=== PATIENT | female | born 1955 | race Two or more races ===

== ENCOUNTER 2019-01-28 15:00 | Inpatient (IN) | payer MEDICARE, OTHER ==
[~2019-01-28] VITALS: Ht 152.4 cm; Wt 73.7 kg
[~2019-01-28 15:00] MED LIST: IV NORMAL SALINE 500ML BAG 500 ML IV ONE; fentaNYL PF VIAL 100 MCG/2 ML VIAL IV ONE
[2019-01-28] MEDS ORDERED: AZITHRMYCN 500MG IVPB FOR OMNI 250 ML IV ONE (17:30)
[2019-01-28] MEDS ORDERED: cefTRIAXone IV Push 1 GM VIAL. IVP SCH (17:30)
[2019-01-28] MEDS ORDERED: hydrALAZINE 20 MG/ML VIAL. IVP ONE (17:45)
[2019-01-28] MEDS ORDERED: ALBUTEROL SULFATE 2.5 MG/3 ML NEBU. NEB ONE (17:45)
[2019-01-28] MEDS ORDERED: IOHEXOL 350 MG/ML 100 ML VIAL. IV ONE (20:00)
[2019-01-28 20:30] VITALS: BP 130/49
[2019-01-28 21:36] LABS: CALCIUM 9.3 mg/dL (8.5-10.1); CREATININE 0.9 mg/dL (0.6-1.0); GFR 63.2; POTASSIUM 3.3 mmol/L (3.5-5.1)
[2019-01-28 22:46] VITALS: BP 146/65
[2019-01-28 23:11] LABS: BASO % 0 % (0-3); EOS # 0.4 x10^3/uL (0.0-0.7); EOS % 3 % (0-3); HEMATOCRIT 36.3 % (36.0-47.0); LYMPH # 0.9 x10^3/uL (1.0-4.8); LYMPH % 6 % (24-48); MEAN CORPUSCULAR HEMOGLOBIN 30 pg (25-35); MEAN CORPUSCULAR HGB CONC 33 g/dL (31-37); MEAN CORPUSCULAR VOLUME 89 fL (79-100); MONO # 0.6 x10^3/uL (0.0-1.1); MONO % 4 % (0-9); NEUT # 14.3 x10^3uL (1.8-7.7); NEUT % 88 % (31-73); PLATELET COUNT 222 x10^3/uL (140-400); PROTHROMBIN TIME PATIENT 14.9 SEC (11.7-14.0); RED BLOOD COUNT 4.08 x10^6/uL (3.50-5.40); WHITE BLOOD COUNT 16.2 x10^3/uL (4.0-11.0)
[2019-01-28] MEDS ORDERED: NITROGLYCERIN SUBLINGUAL 0.4 MG BOTTLE OF 25. SL PRN (23:15)
[2019-01-28] MEDS ORDERED: CEFUROXIME AXETIL PO SCH (23:15)
[2019-01-28] MEDS ORDERED: ACETAMINOPHEN 325 MG TABLET. PO PRN (23:15)
[2019-01-28] MEDS ORDERED: CONTRAST GIVEN. MC PRN (23:15)
[2019-01-28] MEDS ORDERED: NON FORMULARY ITEM (Melatonin 2 TAB) PO SCH (23:15)
[2019-01-28] MEDS ORDERED: ALBUTEROL SULFATE PO PRN (23:15)
[2019-01-28 23:18] LABS: % BANDS 6 % (0-9); % EOS 2 % (0-5); % LYMPHS 6 % (24-48); % MONOS 3 % (0-10); % SEGS 83 % (35-66)
[2019-01-28 23:20] LABS: PLT ESTIMATE ADEQUATE (ADEQUATE); TOXIC GRANULATION MOD
[2019-01-28] MEDS ORDERED: ASPI81TA50 PO (23:42)
[2019-01-28] MEDS ORDERED: FLUT12AE IH (23:42)
[2019-01-28] MEDS ORDERED: CLOP75TA PO (23:42)
[2019-01-28] MEDS ORDERED: OXYC5SOL PO (23:42)
[2019-01-28] MEDS ORDERED: NITR0.4T SL (23:42)
[2019-01-28] MEDS ORDERED: MELA3TAB2 PO (23:42)
[2019-01-28] MEDS ORDERED: RANI150T2 PO (23:42)
[2019-01-28] MEDS ORDERED: ASCO500T2 PO (23:42)
[2019-01-28] MEDS ORDERED: MAGN2400 PO (23:42)
[2019-01-28] MEDS ORDERED: ACET325T9 PO (23:42)
[2019-01-28] MEDS ORDERED: FURO40TA4 PO (23:42)
[2019-01-28] MEDS ORDERED: BUSP15TA PO (23:42)
[2019-01-28] MEDS ORDERED: FLUT16SP NS (23:42)
[2019-01-28] MEDS ORDERED: CARV3.1210 PO (23:42)
[2019-01-28] MEDS ORDERED: ARIP10TA9 PO (23:42)
[2019-01-28] MEDS ORDERED: DULO60CA6 PO (23:42)
[2019-01-28] MEDS ORDERED: PRAM0.255 PO (23:42)
[2019-01-28] MEDS ORDERED: GABA600T7 PO (23:42)
[2019-01-28] MEDS ORDERED: FERR220S4 PO (23:42)
[2019-01-28] MEDS ORDERED: ALBU2SYR2 PO (23:42)
[2019-01-28] MEDS ORDERED: LOSA25TA12 PO (23:42)
[2019-01-28] MEDS ORDERED: CEFU500T46 PO (23:42)
[2019-01-28] MEDS ORDERED: ATOR40TA59 PO (23:42)
[2019-01-28] MEDS ORDERED: ONDA8TAB14 PO (23:42)
[2019-01-28] MEDS ORDERED: SODI30SP NS (23:42)
[2019-01-28] MEDS ORDERED: MULT1TAB77 PO (23:42)
[2019-01-28] MEDS ORDERED: WHEY227P PO (23:42)
[2019-01-29] MEDS ORDERED: ONDANSETRON ODT 4 MG TAB.RAPDIS. PO PRN (00:15)
[2019-01-29] MEDS ORDERED: MAGNESIUM HYDROXIDE 2,400 MG/30 ML ORAL.SUSP. PO PRN (00:15)
[2019-01-29] MEDS ORDERED: ALBUTEROL SULFATE 2.5 MG/3 ML NEBU. NEB PRN (00:30)
[2019-01-29] MEDS: oxyCODONE IR 5 MG TABLET PO PRN ×4 (00:45→18:32)
[2019-01-29] MEDS: busPIRone 5 MG TABLET. PO SCH ×3 (00:46→21:07)
[2019-01-29] MEDS: PRAMIPEXOLE 0.25 MG TABLET. PO SCH ×2 (00:46→21:07)
[2019-01-29] MEDS: ATORVASTATIN CALCIUM 40 MG TABLET. PO SCH ×2 (00:46→21:07)
[2019-01-29] MEDS: ASCORBIC ACID 500 MG TABLET PO SCH ×3 (00:46→21:07)
[2019-01-29] MEDS: CARVEDILOL 3.125 MG TABLET. PO SCH ×3 (00:47→18:27)
[2019-01-29] MEDS: diphenhydrAMINE HCL 25 MG CAPSULE PO PRN ×2 (00:47→21:07)
[2019-01-29 03:00] VITALS: BP 152/61
[2019-01-29 05:46] LABS: BASO % 0 % (0-3); EOS # 0.1 x10^3/uL (0.0-0.7); EOS % 1 % (0-3); HEMATOCRIT 35.2 % (36.0-47.0); LYMPH # 1.2 x10^3/uL (1.0-4.8); LYMPH % 11 % (24-48); MEAN CORPUSCULAR HEMOGLOBIN 30 pg (25-35); MEAN CORPUSCULAR HGB CONC 34 g/dL (31-37); MEAN CORPUSCULAR VOLUME 88 fL (79-100); MONO # 0.5 x10^3/uL (0.0-1.1); MONO % 5 % (0-9); NEUT # 8.7 x10^3uL (1.8-7.7); NEUT % 82 % (31-73); PLATELET COUNT 229 x10^3/uL (140-400); RED CELL DISTRIBUTION WIDTH 15.9 % (11.5-14.5); WHITE BLOOD COUNT 10.6 x10^3/uL (4.0-11.0)
[2019-01-29 05:49] LABS: ALBUMIN 3.1 g/dL (3.4-5.0); ALBUMIN/GLOBULIN RATIO 0.8 (1.0-1.7); CREATININE 0.8 mg/dL (0.6-1.0); GFR 72.4; TOTAL BILIRUBIN 0.8 mg/dL (0.2-1.0); TOTAL PROTEIN 7.1 g/dL (6.4-8.2)
[2019-01-29 06:55] VITALS: BP 135/48
[2019-01-29] MEDS: BUDESONIDE 0.5 MG/2 ML NEBU. NEB SCH ×2 (07:28→20:00)
--- NOTE | 2019-01-29 07:45 | EKG ---
[facility] [address] [place] [address] Test Date: 2019-01-28 Test Time: 14:43:52 Pat Name: KATHERINE MCGILL Department: Room: [facility] Gender: F Freight Breaker: : 1955 Requested By: DASH LAZO Order Number: [id number] Reading MD: Malcolm Luna Measurements Intervals [place] Rate: 64 P: 33 OK: 152 QRS: 10 QRSD: 98 T: 0 QT: 416 QTc: 429 Interpretive Statements SINUS RHYTHM LEFT ATRIAL ABNORMALITY NONSPECIFIC ST-T WAVE CHANGES. Electronically Signed On 01-31-2019 9:43:50 CDT by Malcolm Luna
[2019-01-29] MEDS ORDERED: WHEY PROTEIN ISOLATE PO SCH (08:00)
[2019-01-29] MEDS: ARIPiprazole 5 MG TABLET PO SCH (08:42)
[2019-01-29] MEDS: ASPIRIN ENTERIC COATED 81 MG TABLET.DR. PO SCH (08:43)
[2019-01-29] MEDS: FAMOTIDINE 20 MG TABLET. PO SCH (08:43)
[2019-01-29] MEDS: FERROUS SULFATE 325 MG TABLET. PO SCH (08:43)
[2019-01-29] MEDS: CLOPIDOGREL BISULFATE 75 MG TABLET PO SCH (08:43)
[2019-01-29] MEDS: MULTIVITAMIN with MINERAL TABLET. PO SCH (08:43)
--- NOTE | 2019-01-29 08:43 | RAD ---
Chest CTA History: Cough, hemoptysis Technique: After bolus of intravenous contrast, CT imaging was performed of the chest. Multiplanar reconstruction images to include MIP reconstruction images are submitted. Exposure: One or more of the following individualized dose reduction techniques were utilized for this examination: 1. Automated exposure control 2. Adjustment of the mA and/or kV according to patient size 3. Use of iterative reconstruction technique. Comparison: None Findings: [ ] No pulmonary embolism is identified. There is fairly prominent coronary calcification. There is no dissection flap of the thoracic aorta. There is aortic annular calcification. There is no pericardial pleural fluid or pneumothorax. There is fairly prominent right lower lobe infiltrate, also more localized infiltrate posteriorly of the right upper lobe, minimal left lower lobe infiltrate. There is a borderline enlarged pretracheal node about 1 cm short axis dimension. There are some enlarged right hilar nodes, largest about 1.2 cm short axis dimension It is difficult to exclude a degree of mild esophageal wall thickening. There is right shoulder arthroplasty with associated artifact. There is osteoarthritic change of the left shoulder. There may be hepatic steatosis. There are postsurgical changes of stomach. There is multilevel thoracic degenerative disc disease and spondylosis. Impression: 1. There is no evidence of pulmonary embolic disease. 2. There is fairly prominent right lower lobe infiltrate, also more localized infiltrate posteriorly of the right upper lobe and minimally of the left lower lobe. Follow-up after treatment is advised such as within 2 months. There is right hilar lymphadenopathy, borderline enlarged mediastinal nodes. 3. There is prominent coronary calcification. Electronically signed by: Shaun Morley MD (01/29/2019 8:40 AM) [id number]
[2019-01-29] MEDS: LOSARTAN POTASSIUM 25 MG TABLET. PO SCH (08:45)
[2019-01-29] MEDS: FLUTICASONE 50MCG/NASAL SPRAY 16GM BOTTLE. NS SCH (08:46)
[2019-01-29] MEDS: DULoxetine HCL 30 MG CAPSULE.DR PO SCH (08:51)
[2019-01-29] MEDS: FUROSEMIDE 40 MG TABLET. PO SCH (08:51)
[2019-01-29] MEDS ORDERED: NON FORMULARY ITEM (Fluticasone Propionate (Flovent 110MCG Hfa) 1 PUFF) IH SCH (09:00)
[2019-01-29 10:36] VITALS: BP 146/59
[2019-01-29] MEDS ORDERED: PIP/TAZO PER PHARMACY MC PRN (13:00)
[2019-01-29] MEDS ORDERED: POTASSIUM CHLORIDE 20 MEQ TABLET.ER. PO ONE (13:15)
[2019-01-29] MEDS ORDERED: VANCOMYCIN 1.75 GM in IV NORMAL SALINE 500ML BAG 500 ML IV ONE (13:30)
[2019-01-29] MEDS ORDERED: POTASSIUM CHLORIDE 20 MEQ/15 ML ORAL LIQUID. PO ONE (13:30)
--- NOTE | 2019-01-29 13:30 | HP ---
ADMIT DATE: 01/28/2019 HISTORY OF PRESENT ILLNESS: The patient is a 63-year-old female patient, a resident at [facility] in [place], who has been complaining of recurrent bouts of cough with hemoptysis. She was sent to [facility], was diagnosed there with UTI, and was discharged back to [facility] with oral antibiotic without investigating her symptoms further. However, she continued to have recurrent bouts of hemoptysis and therefore a decision was made to transfer her to [facility] Emergency Room where she was evaluated, she was found to have leukocytosis and a CT angio of the chest showed that the patient has no pulmonary embolic disease; however, there is fairly prominent right lower lobe infiltrate, more localized infiltrates seen in the right upper lobe and minimally on the left lower lobe. Follow up after treatment is advised such as within 2 months. There is right hilar lymphadenopathy, borderline enlarged mediastinal nodes. There is also prominent coronary calcification. She was admitted and was started on Rocephin and Zithromax. However, she came from a [facility] and I did change her to Zosyn and vancomycin. 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 She has chronic low back pain, muscle weakness. 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 She has also type 2 diabetes mellitus without complication and severe protein-calorie mentation and episodes of ventricular tachycardia. PAST SURGICAL HISTORY: Significant for esophagogastroduodenoscopy and gastric bypass surgery for morbid obesity. ALLERGIES: SHE IS ALLERGIC TO CODEINE, ZETIA, FENOFIBRATE, MORPHINE, PIOGLITAZONE, SIMVASTATIN, AND SULFADIAZINE. MEDICATIONS: She is currently on following medications: She was on cefuroxime 500 mg twice a day, albuterol sulfate 4 times a day, ferrous sulfate 220 mg per 5 mL solution daily, Plavix 75 mg daily, atorvastatin calcium 40 mg daily, nitroglycerin 0.4 mg sublingually as needed every 5 minutes. She is on carvedilol 3.125 mg twice a day with meals, losartan potassium 25 mg daily, aspirin 81 mg once a day. She is on oxycodone 5 mg per 5 mL, she takes 5 mg every 4 hours as needed, Tylenol 650 mg every 4 hours, gabapentin 1200 mg daily with supper. She is on aripiprazole for Abilify 10 mg daily, buspirone 15 twice a day. She is on Mirapex 0.25 mg at bedtime, furosemide 40 mg daily, Flovent 110 mcg 1 puff twice a day, Flonase 2 sprays to each nostril once a day, sodium chloride for saline nasal spray 1-2 sprays 4 times a day, magnesium hydroxide for milk of magnesia 30 mL p.o. daily p.r.n. for constipation, ondansetron 4 mg every 6 hours, ranitidine 150 mg p.o. daily, ascorbic acid 500 mg twice a day, multivitamin, folic acid 1 tablet once a day, melatonin 6 mg at bedtime, Beneprotein 227 grams p.o. t.i.d. with meals. FAMILY HISTORY: Noncontributory. SOCIAL HISTORY: She is a resident at [facility]. She does not smoke, drink alcohol or use any recreational drugs. REVIEW OF SYSTEMS: As per history of present illness. PHYSICAL EXAMINATION: GENERAL: On arrival to the Emergency Room, the patient looked pale, but no jaundice, cyanosis, or thyromegaly. No jugular venous distention. No lower limb edema. VITAL SIGNS: Her heart rate was 78, blood pressure was 146/65, temperature was 99, respiratory rate was 19 and oxygen saturation was 100% on room air. HEAD, EYES, EARS, NOSE AND THROAT: Showed normocephalic, atraumatic. NECK: Supple. HEART: Showed normal first and second heart sounds. No gallop, rub or murmur. CHEST: Shows central trachea, equal bilateral expansion, air entry, vesicular breath sounds. No crepitation or rhonchi. ABDOMEN: Scaphoid, soft, nontender. NEUROLOGIC: She was awake, alert, responding appropriately. All cranial nerves intact. She moves extremities without difficulty. She ambulates with a walker. LABORATORY DATA: On arrival to the Emergency Room showed a white cell count of 16,200, hemoglobin 12, hematocrit 36.3, MCV 89 and platelet count 222,000 with normal manual differential. Her serum sodium was 139, potassium 3.3, chloride 101, bicarbonate 31, anion gap of 7, BUN 15, creatinine 0.9, estimated GFR was 63 mL per minute. Her glucose was 111, calcium was 9.3. Her lactic acid was only 1.4. Her prothrombin time was 14.9, INR 1.2, aPTT was 36. Her chest CT angiography showed that there is no pulmonary emboli identified. There is fairly prominent coronary calcification. There is no dissection flap of the thoracic aorta. There is aortic annular calcification. There is no pericardial, pleural fluid, or pneumothorax. There is fairly prominent right lower lobe infiltrate, also more localized infiltrates posteriorly in the right upper lobe and minimal left lower lobe infiltrate. There is a borderline enlarged pretracheal node about 1 cm in short axis dimension. There are some enlarged right hilar nodes, largest about 1.2 cm short axis, difficult to exclude degree of mild esophageal wall thickening. There is right shoulder arthroplasty with associated artifact. There are osteoarthritic changes of the left shoulder. There may be hepatic steatosis. There are post-surgical changes of the stomach. There is multilevel thoracic degenerative disk disease and spondylosis. ASSESSMENT AND PLAN: The patient was admitted with healthcare-associated pneumonia. She was given IV Rocephin and Zithromax. However, she came [facility] a [facility] and she probably needs to be on vancomycin and Zosyn. Given the fact that she has multiple episodes of hemoptysis and at least 2-3 episodes of pneumonia, presented initially with hemoptysis, I will consult the manager of administration to assist with her management. The recurrence of pneumonia is obviously likely due to her tendency to aspirate; however, underlying neoplasm given the hemoptysis needs to be excluded. She is on Plavix and aspirin. DASH LAZO MD DR: RADHA/agustina JOB#: [id number] / [id number]
[2019-01-29] MEDS: POTASSIUM CHLORIDE 20 MEQ/15 ML ORAL LIQUID. PO SCH ×2 (14:00→20:06)
[2019-01-29] MEDS ORDERED: POTASSIUM CHLORIDE 20 MEQ TABLET.ER. PO SCH (14:00)
[2019-01-29] MEDS: PIPERACILLIN/TAZOBACTAM 3.375 GM in IV NORMAL SALINE 50ML 50 ML IV SCH ×2 (14:35→21:06)
[2019-01-29 15:16] VITALS: BP 140/67
--- NOTE | 2019-01-29 15:29 | NUR ---
Patient did not tolerate KCL oral solution, called Dr. Heredia at 1520, received order to start KCL correction via IV.
[2019-01-29] MEDS: POTASSIUM CHLORIDE 10MEQ 100 ML IV SCH ×3 (16:06→21:54)
[2019-01-29] MEDS: VANCOMYCIN PER PHARMACY MC PRN (16:50)
--- NOTE | 2019-01-29 16:54 | NUR ---
Pharmacy Vancomycin Dosing Note S:Consulted to monitor and dose vancomycin started 01/29/19. O:KATHERINE MCGILL is a 63 year old F with Pneumonia . Height: 5 feet, 0 inches Weight: 75.547283 kg [place] Body Weight: 45.50 Adjusted Body Weight: 57.30 Dosing Weight: Actual Other Antibiotics: ZOSYM 3.375GM q6hrs LABS: Last BUN: 11 Last Creatinine: 0.8 Creatinine Clearance: 65.1 mL/min Last WBC: 10.6 Last Procalcitonin: Tmax (past 24 hours): 99.0 Microbiology: I/O: 300/ Drug Levels: Last level: on at Last dose given 01/29/19 at 1549 Vancomycin Dosing: Loading Dose: 1750 mg x1 Dosing Weight: Actual Target Trough: 15-20 A: Based on weight and est. CrCl: P: 1. Start Vancomycin 1750mg, followed by Vancomycin 1250 mg IV q12h. 2. Follow up Trough level on 01/31/19 at 0330. 3. Pharmacy will continue to monitor, follow and adjust therapy as needed. Jason Pool [facility], 01/29/19 [id number]
--- NOTE | 2019-01-29 17:47 | PDOC ---
PULMONARY PROGRESS NOTES Vitals Vital Signs Date Time Temp Pulse Resp B/P (MAP) Pulse Ox O2 Delivery O2 Flow Rate FiO2 01/29/19 15:16 97.9 71 19 140/67 (91) 97 Room Air 97.9 Labs Laboratory Tests Test 01/28/19 14:45 01/28/19 17:23 01/29/19 04:50 White Blood Count 16.2 x10^3/uL (4.0-11.0) 10.6 x10^3/uL (4.0-11.0) Red Blood Count 4.08 x10^6/uL (3.50-5.40) 4.00 x10^6/uL (3.50-5.40) Hemoglobin 12.0 g/dL (12.0-15.5) 12.0 g/dL (12.0-15.5) Hematocrit 36.3 % (36.0-47.0) 35.2 % (36.0-47.0) Mean Corpuscular Volume 89 fL (79-100) 88 fL (79-100) Mean Corpuscular Hemoglobin 30 pg (25-35) 30 pg (25-35) Mean Corpuscular Hemoglobin Concent 33 g/dL (31-37) 34 g/dL (31-37) Red Cell Distribution Width 16.0 % (11.5-14.5) 15.9 % (11.5-14.5) Platelet Count 222 x10^3/uL (140-400) 229 x10^3/uL (140-400) Neutrophils (%) (Auto) 88 % (31-73) 82 % (31-73) Lymphocytes (%) (Auto) 6 % (24-48) 11 % (24-48) Monocytes (%) (Auto) 4 % (0-9) 5 % (0-9) Eosinophils (%) (Auto) 3 % (0-3) 1 % (0-3) Basophils (%) (Auto) 0 % (0-3) 0 % (0-3) Neutrophils # (Auto) 14.3 x10^3uL (1.8-7.7) 8.7 x10^3uL (1.8-7.7) Lymphocytes # (Auto) 0.9 x10^3/uL (1.0-4.8) 1.2 x10^3/uL (1.0-4.8) Monocytes # (Auto) 0.6 x10^3/uL (0.0-1.1) 0.5 x10^3/uL (0.0-1.1) Eosinophils # (Auto) 0.4 x10^3/uL (0.0-0.7) 0.1 x10^3/uL (0.0-0.7) Basophils # (Auto) 0.0 x10^3/uL (0.0-0.2) 0.0 x10^3/uL (0.0-0.2) Segmented Neutrophils % 83 % (35-66) Band Neutrophils % 6 % (0-9) Lymphocytes % 6 % (24-48) Monocytes % 3 % (0-10) Eosinophils % 2 % (0-5) Toxic Granulation Mod Platelet Estimate Adequate (ADEQUATE) Prothrombin Time 14.9 SEC (11.7-14.0) Prothromb Time International Ratio 1.2 (0.8-1.1) Activated Partial Thromboplast Time 36 SEC (24-38) Sodium Level 139 mmol/L (136-145) 141 mmol/L (136-145) Potassium Level 3.3 mmol/L (3.5-5.1) 3.0 mmol/L (3.5-5.1) Chloride Level 101 mmol/L (98-107) 104 mmol/L (98-107) Carbon Dioxide Level 31 mmol/L (21-32) 29 mmol/L (21-32) Anion Gap 7 (6-14) 8 (6-14) Blood Urea Nitrogen 15 mg/dL (7-20) 11 mg/dL (7-20) Creatinine 0.9 mg/dL (0.6-1.0) 0.8 mg/dL (0.6-1.0) Estimated GFR (Cockcroft-Gault) 63.2 72.4 Glucose Level 111 mg/dL (70-99) 117 mg/dL (70-99) Calcium Level 9.3 mg/dL (8.5-10.1) 9.0 mg/dL (8.5-10.1) Troponin I Quantitative 0.017 ng/mL (0.000-0.055) Lactic Acid Level 1.4 mmol/L (0.4-2.0) BUN/Creatinine Ratio 14 (6-20) Total Bilirubin 0.8 mg/dL (0.2-1.0) Aspartate Amino Transf (AST/SGOT) 23 U/L (15-37) Alanine Aminotransferase (ALT/SGPT) 17 U/L (14-59) Alkaline Phosphatase 106 U/L (46-116) Total Protein 7.1 g/dL (6.4-8.2) Albumin 3.1 g/dL (3.4-5.0) Albumin/Globulin Ratio 0.8 (1.0-1.7) Laboratory Tests Test 01/29/19 04:50 White Blood Count 10.6 x10^3/uL (4.0-11.0) Red Blood Count 4.00 x10^6/uL (3.50-5.40) Hemoglobin 12.0 g/dL (12.0-15.5) Hematocrit 35.2 % (36.0-47.0) Mean Corpuscular Volume 88 fL (79-100) Mean Corpuscular Hemoglobin 30 pg (25-35) Mean Corpuscular Hemoglobin Concent 34 g/dL (31-37) Red Cell Distribution Width 15.9 % (11.5-14.5) Platelet Count 229 x10^3/uL (140-400) Neutrophils (%) (Auto) 82 % (31-73) Lymphocytes (%) (Auto) 11 % (24-48) Monocytes (%) (Auto) 5 % (0-9) Eosinophils (%) (Auto) 1 % (0-3) Basophils (%) (Auto) 0 % (0-3) Neutrophils # (Auto) 8.7 x10^3uL (1.8-7.7) Lymphocytes # (Auto) 1.2 x10^3/uL (1.0-4.8) Monocytes # (Auto) 0.5 x10^3/uL (0.0-1.1) Eosinophils # (Auto) 0.1 x10^3/uL (0.0-0.7) Basophils # (Auto) 0.0 x10^3/uL (0.0-0.2) Sodium Level 141 mmol/L (136-145) Potassium Level 3.0 mmol/L (3.5-5.1) Chloride Level 104 mmol/L (98-107) Carbon Dioxide Level 29 mmol/L (21-32) Anion Gap 8 (6-14) Blood Urea Nitrogen 11 mg/dL (7-20) Creatinine 0.8 mg/dL (0.6-1.0) Estimated GFR (Cockcroft-Gault) 72.4 BUN/Creatinine Ratio 14 (6-20) Glucose Level 117 mg/dL (70-99) Calcium Level 9.0 mg/dL (8.5-10.1) Total Bilirubin 0.8 mg/dL (0.2-1.0) Aspartate Amino Transf (AST/SGOT) 23 U/L (15-37) Alanine Aminotransferase (ALT/SGPT) 17 U/L (14-59) Alkaline Phosphatase 106 U/L (46-116) Total Protein 7.1 g/dL (6.4-8.2) Albumin 3.1 g/dL (3.4-5.0) Albumin/Globulin Ratio 0.8 (1.0-1.7) Medications Active Scripts Medications Dose Route/Sig Max Daily Dose Days Date Category Oxycodone Hcl 5 Mg/5 Ml Solution 5 Mg PO PRN Q4HRS PRN 01/28/19 Reported Melatonin 3 Mg Tablet 2 Tab PO QHS 01/28/19 Reported Nitrostat (Nitroglycerin) 0.4 Mg Tab.subl 1 Tab SL UD 01/28/19 Reported Milk Of Magnesia (Magnesium Hydroxide) 2,400 Mg/10 Ml Oral.susp 30 Ml PO DAILY 01/28/19 Reported Tylenol (Acetaminophen) 325 Mg Tablet 650 Mg PO PRN Q4HRS PRN 01/28/19 Reported Albuterol Sulfate Oral Syrup (Albuterol Sulfate) 2 Mg/5 Ml Syrup 5 Ml PO PRN QID PRN 01/28/19 Reported Cefuroxime (Cefuroxime Axetil) 500 Mg Tablet 1 Tab PO BID 5 01/28/19 Reported Saline Nasal Banks (Sodium Chloride) 30 Ml Banks 1-2 Banks NS PRN QID 01/28/19 Reported Ondansetron Hcl 8 Mg Tablet 4 Mg PO PRN Q6HRS PRN 01/28/19 Reported Atorvastatin Calcium 40 Mg Tablet 1 Tab PO DAILY 01/28/19 Reported Mirapex (Pramipexole Di-Hcl) 0.25 Mg Tablet 1 Tab PO QHS 01/28/19 Reported Vitamin C (Ascorbic Acid) 500 Mg Tablet 500 Mg PO BID 01/28/19 Reported Fluticasone Propionate Nasal Banks (Fluticasone Propionate) 16 Gm Banks.susp 2 Banks NS DAILY 01/28/19 Reported Flovent 110MCG Hfa (Fluticasone Propionate) 12 Gm Aer.w.adap 1 Puff IH BID 01/28/19 Reported Carvedilol (Carvedilol) 3.125 Mg Tablet 3.125 Mg PO BIDWMEALS 01/28/19 Reported Buspirone Hcl 15 Mg Tablet 1 Tab PO BID 01/28/19 Reported Thera Tablet (Multivitamin with Folic Acid) 400 Mcg Tablet 400 Mcg PO DAILY 01/28/19 Reported Ranitidine Hcl 150 Mg Tablet 150 Mg PO DAILY 01/28/19 Reported Losartan Potassium 25 Mg Tablet 25 Mg PO DAILY05 01/28/19 Reported Beneprotein (Whey Protein Isolate) 227 Gm Powder 227 Gm PO TIDWMEALS 01/28/19 Reported Gabapentin 600 Mg Tablet 1,200 Mg PO DAILYWSUP 01/28/19 Reported Furosemide 40 Mg Tablet 1 Tab PO DAILY 01/28/19 Reported Ferosul (Ferrous Sulfate) 220 Mg/5 Ml Solution 220 Mg PO DAILY 01/28/19 Reported Cymbalta (Duloxetine Hcl) 60 Mg Capsule.dr 1 Cap PO DAILY 01/28/19 Reported Clopidogrel (Clopidogrel Bisulfate) 75 Mg Tablet 1 Tab PO DAILY 01/28/19 Reported Aspir-Low (Aspirin) 81 Mg Tablet.dr 1 Tab PO DAILY 01/28/19 Reported Abilify (Aripiprazole) 10 Mg Tablet 10 Mg PO DAILY 01/28/19 Reported Impression . HEMOPTYSIS PNEUMONIA AGREE WITH CURRENT RX THANKS NANNETTE LONDONO MD January 29, 2019 17:47
[2019-01-29] MEDS: GABAPENTIN 400 MG CAPSULE. PO SCH (18:27)
[2019-01-29 19:00] VITALS: BP 173/67
[2019-01-29] MEDS: SODIUM CHLORIDE 0.65% NASAL SPRAY 45ML BOTTLE. NS PRN (21:55)
[2019-01-29 23:00] VITALS: BP 163/64
[2019-01-30] MEDS: POTASSIUM CHLORIDE 10MEQ 100 ML IV SCH (00:04)
--- NOTE | 2019-01-30 00:08 | PN ---
DATE: 01/29/2019 SUBJECTIVE: The patient is resting, slightly propped up, eating her lunch comfortably, in no apparent distress. On questioning her, she continued to have cough with blood-tinged sputum. Did complain of shortness of breath, but denied any chest pain. Denied any chills, rigors or fever. OBJECTIVE: GENERAL: When I examined her, she was pale. No jaundice, cyanosis, or thyromegaly. No jugular venous distension. No limb edema. VITAL SIGNS: Her heart rate was 69, blood pressure was 146/59, temperature was 98.1, respiratory rate was 17 and oxygen saturation was 99%. HEAD, EYES, EARS, NOSE AND THROAT: Normocephalic, atraumatic. NECK: Supple. HEART: Showed normal first and second heart sounds with no gallop, rub or murmur. CHEST: Clear to auscultation. No crepitation or rhonchi. ABDOMEN: Distended, soft, nontender. NEUROLOGIC: She was awake, alert, responding appropriately. All cranial nerves intact. She moves extremities without difficulty. She ambulates with a walker. LABORATORY DATA: Her lab work this morning showed a serum sodium 141, potassium 3, chloride 104, bicarbonate 29, anion gap of 8, BUN 11, creatinine 0.8. Estimated GFR was 72 mL per minute. Her glucose 117, calcium was 9. Total bilirubin, AST, ALT, alkaline phosphatase are normal. Total protein was 7.1, albumin was 3.1. Her white cell count is down to 10,600, hemoglobin 12, hematocrit 35, MCV 88 and platelet count 229,000 with manual differential showed 82% polymorphs, 11% lymphocytes and 5% monocytes. Her prothrombin time was 14.9, INR 1.2. ASSESSMENT AND PLAN: In summary, this is a 63-year-old female patient, who was admitted with healthcare-associated pneumonia. She also has hemoptysis and every time she presents with hemoptysis, she gets diagnosed with pneumonia. She is known to have dysphagia and she is on dysphagia diet; however, given the recurrence of hemoptysis, I am wondering whether there is also some other underlying problems. She is known to have also chronic obstructive pulmonary disease, gastroesophageal reflux disease. 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 My plan is to switch her to vancomycin and Zosyn given the fact that she came from healthcare facility. I will consult the angiography nurse as she has had multiple episodes of pneumonia, presented initially with hemoptysis. However, she is also on Plavix and aspirin. DASH LAZO MD DR: RADHA/agustina JOB#: [id number] / [id number]
[2019-01-30] MEDS: PIPERACILLIN/TAZOBACTAM 3.375 GM in IV NORMAL SALINE 50ML 50 ML IV SCH ×4 (01:15→18:31)
[2019-01-30] MEDS: oxyCODONE IR 5 MG TABLET PO PRN ×4 (01:29→21:03)
[2019-01-30 03:00] VITALS: BP 120/45
[2019-01-30 04:18] LABS: HEMATOCRIT 35.1 % (36.0-47.0); HEMOGLOBIN 11.7 g/dL (12.0-15.5); RED BLOOD COUNT 3.93 x10^6/uL (3.50-5.40); RED CELL DISTRIBUTION WIDTH 16.1 % (11.5-14.5); WHITE BLOOD COUNT 8.2 x10^3/uL (4.0-11.0)
[2019-01-30 04:35] LABS: CALCIUM 8.8 mg/dL (8.5-10.1); POTASSIUM 3.8 mmol/L (3.5-5.1)
[2019-01-30] MEDS: VANCOMYCIN 1.25 GM in IV NORMAL SALINE 250ML 250 ML IV SCH ×2 (05:00→16:21)
--- NOTE | 2019-01-30 05:42 | CONS ---
DATE OF CONSULTATION: 01/29/2019 ATTENDING PHYSICIAN: Dr. Heredia. REASON FOR CONSULTATION: The patient is seen in pulmonary consultation at the request of Dr. Heredia for hemoptysis. HISTORY OF PRESENT ILLNESS: The patient is a 63-year-old with a history of remote tobacco use, who resides at [facility] in [place], had been complaining of bouts of cough and hemoptysis. She was actually seen in [facility] Department, was diagnosed with UTI, discharged back to [facility] with [facility]. The patient continued to have recurrent hemoptysis, anywhere between enedina, slightly larger than enedina, no maude hemoptysis. She was admitted. She underwent CT angiogram. There was no evidence of pulmonary emboli. There was a right lower lobe and right upper lobe infiltrate. She is currently receiving antibiotics. PAST MEDICAL HISTORY: 1. COPD, tobacco dependence, in remission. 2. Dysphagia. 3. Gastroesophageal reflux. 4. Generalized weakness and chronic pain. 5. Psychiatric disorder including panic episodic paroxysmal anxiety. 6. Osteoarthritis. 7. Chronic systolic, diastolic heart failure. 8. Bipolar disorder. 9. Type 2 diabetes. PAST SURGICAL HISTORY: Status post previous gastric bypass surgery for morbid obesity. ALLERGIES: Listed to ZETIA. FENOFIBRATE, MORPHINE, PIOGLITAZONE SIMVASTATIN, SULFADIAZINE. MEDICATION LIST: Reviewed. She is currently receiving IV Zosyn and vancomycin. REVIEW OF SYSTEMS: As indicated in the history of present illness, otherwise, a 10-point system was reviewed and negative. FAMILY HISTORY: No family history of lung disorders. SOCIAL HISTORY: She resides at [facility]. No current use of tobacco. PHYSICAL EXAMINATION: VITAL SIGNS: Stable. O2 saturation was greater than 92%, currently on room air. HEENT: Eyes, the sclerae were nonicteric. NECK: Jugular venous distention was not elevated. No lymphadenopathy. CHEST: Full expansion. LUNGS: Adequate flow with slight crackles throughout both lung lew. CARDIOVASCULAR: Regular rate and rhythm with S1, S2, no S3. ABDOMEN: Soft, nontender, nondistended. EXTREMITIES: No clubbing, cyanosis or edema. NEUROLOGIC: The patient was awake, alert, following commands. A detailed neuro exam was not performed. LABORATORY DATA: White count was 16,000; hemoglobin and hematocrit were noted. INR was 1.2. Electrolytes were noted. BUN and creatinine were normal. Albumin was slightly low. CT chest reviewed as indicated above, no evidence of PE. IMPRESSION: 1. Hemoptysis. 2. Abnormal CT chest revealing right upper lobe and right lower lobe pneumonia. 3. Chronic obstructive pulmonary disease with acute exacerbation. 4. Multiple other comorbidities as listed above. PLAN: 1. Recommend coverage for both gram-negative and gram-positive organisms. 2. If patient continues to have hemoptysis, will require bronchoscopy. 3. Suspect hemoptysis related to pneumonia. 4. Continue other home meds. 5. Nebulized treatments. Dr. Heredia, I do appreciate the privilege in sharing in the patient's care. NANNETTE LONDONO MD DR: ASHLEIGH/agustina JOB#: [id number] / [id number]
[2019-01-30 07:25] VITALS: BP 158/66
[2019-01-30] MEDS: CARVEDILOL 3.125 MG TABLET. PO SCH ×2 (08:00→17:22)
[2019-01-30] MEDS: ASCORBIC ACID 500 MG TABLET PO SCH ×2 (08:40→20:48)
[2019-01-30] MEDS: busPIRone 5 MG TABLET. PO SCH ×2 (08:40→20:48)
[2019-01-30] MEDS: DULoxetine HCL 30 MG CAPSULE.DR PO SCH (08:41)
[2019-01-30] MEDS: FUROSEMIDE 40 MG TABLET. PO SCH (08:41)
[2019-01-30] MEDS: FERROUS SULFATE 325 MG TABLET. PO SCH (08:41)
[2019-01-30] MEDS: ASPIRIN ENTERIC COATED 81 MG TABLET.DR. PO SCH (08:41)
[2019-01-30] MEDS: MULTIVITAMIN with MINERAL TABLET. PO SCH (08:41)
[2019-01-30] MEDS: POTASSIUM CHLORIDE 20 MEQ/15 ML ORAL LIQUID. PO SCH ×3 (08:41→20:49)
[2019-01-30] MEDS: CLOPIDOGREL BISULFATE 75 MG TABLET PO SCH (08:41)
[2019-01-30] MEDS: LOSARTAN POTASSIUM 25 MG TABLET. PO SCH (08:42)
[2019-01-30] MEDS: ARIPiprazole 5 MG TABLET PO SCH (08:42)
[2019-01-30] MEDS: BUDESONIDE 0.5 MG/2 ML NEBU. NEB SCH ×2 (08:44→21:14)
[2019-01-30] MEDS: FLUTICASONE 50MCG/NASAL SPRAY 16GM BOTTLE. NS SCH (08:46)
[2019-01-30] MEDS: FAMOTIDINE 20 MG TABLET. PO SCH (08:46)
[2019-01-30 11:00] VITALS: BP 135/75
--- NOTE | 2019-01-30 12:07 | PDOC ---
PULMONARY PROGRESS NOTES Subjective very minimal hemoptysis Vitals Vital Signs Date Time Temp Pulse Resp B/P (MAP) Pulse Ox O2 Delivery O2 Flow Rate FiO2 01/30/19 11:00 97.4 68 19 135/75 (95) 95 Room Air 97.4 ROS: No Chest Pain, No Increase Cough General: Alert, No acute distress Lungs: Clear Cardiovascular: S1 Abdomen: Soft Neuro Exam: Alert Extremities: No Edema Skin: Warm Labs Laboratory Tests Test 01/28/19 14:45 01/28/19 17:23 01/29/19 04:50 01/29/19 08:00 White Blood Count 16.2 x10^3/uL (4.0-11.0) 10.6 x10^3/uL (4.0-11.0) Red Blood Count 4.08 x10^6/uL (3.50-5.40) 4.00 x10^6/uL (3.50-5.40) Hemoglobin 12.0 g/dL (12.0-15.5) 12.0 g/dL (12.0-15.5) Hematocrit 36.3 % (36.0-47.0) 35.2 % (36.0-47.0) Mean Corpuscular Volume 89 fL (79-100) 88 fL (79-100) Mean Corpuscular Hemoglobin 30 pg (25-35) 30 pg (25-35) Mean Corpuscular Hemoglobin Concent 33 g/dL (31-37) 34 g/dL (31-37) Red Cell Distribution Width 16.0 % (11.5-14.5) 15.9 % (11.5-14.5) Platelet Count 222 x10^3/uL (140-400) 229 x10^3/uL (140-400) Neutrophils (%) (Auto) 88 % (31-73) 82 % (31-73) Lymphocytes (%) (Auto) 6 % (24-48) 11 % (24-48) Monocytes (%) (Auto) 4 % (0-9) 5 % (0-9) Eosinophils (%) (Auto) 3 % (0-3) 1 % (0-3) Basophils (%) (Auto) 0 % (0-3) 0 % (0-3) Neutrophils # (Auto) 14.3 x10^3uL (1.8-7.7) 8.7 x10^3uL (1.8-7.7) Lymphocytes # (Auto) 0.9 x10^3/uL (1.0-4.8) 1.2 x10^3/uL (1.0-4.8) Monocytes # (Auto) 0.6 x10^3/uL (0.0-1.1) 0.5 x10^3/uL (0.0-1.1) Eosinophils # (Auto) 0.4 x10^3/uL (0.0-0.7) 0.1 x10^3/uL (0.0-0.7) Basophils # (Auto) 0.0 x10^3/uL (0.0-0.2) 0.0 x10^3/uL (0.0-0.2) Segmented Neutrophils % 83 % (35-66) Band Neutrophils % 6 % (0-9) Lymphocytes % 6 % (24-48) Monocytes % 3 % (0-10) Eosinophils % 2 % (0-5) Toxic Granulation Mod Platelet Estimate Adequate (ADEQUATE) Prothrombin Time 14.9 SEC (11.7-14.0) Prothromb Time International Ratio 1.2 (0.8-1.1) Activated Partial Thromboplast Time 36 SEC (24-38) Sodium Level 139 mmol/L (136-145) 141 mmol/L (136-145) Potassium Level 3.3 mmol/L (3.5-5.1) 3.0 mmol/L (3.5-5.1) Chloride Level 101 mmol/L (98-107) 104 mmol/L (98-107) Carbon Dioxide Level 31 mmol/L (21-32) 29 mmol/L (21-32) Anion Gap 7 (6-14) 8 (6-14) Blood Urea Nitrogen 15 mg/dL (7-20) 11 mg/dL (7-20) Creatinine 0.9 mg/dL (0.6-1.0) 0.8 mg/dL (0.6-1.0) Estimated GFR (Cockcroft-Gault) 63.2 72.4 Glucose Level 111 mg/dL (70-99) 117 mg/dL (70-99) Calcium Level 9.3 mg/dL (8.5-10.1) 9.0 mg/dL (8.5-10.1) Troponin I Quantitative 0.017 ng/mL (0.000-0.055) Lactic Acid Level 1.4 mmol/L (0.4-2.0) BUN/Creatinine Ratio 14 (6-20) Total Bilirubin 0.8 mg/dL (0.2-1.0) Aspartate Amino Transf (AST/SGOT) 23 U/L (15-37) Alanine Aminotransferase (ALT/SGPT) 17 U/L (14-59) Alkaline Phosphatase 106 U/L (46-116) Total Protein 7.1 g/dL (6.4-8.2) Albumin 3.1 g/dL (3.4-5.0) Albumin/Globulin Ratio 0.8 (1.0-1.7) Nasal Screen MRSA (PCR) Positive (Negative) Test 01/30/19 03:30 White Blood Count 8.2 x10^3/uL (4.0-11.0) Red Blood Count 3.93 x10^6/uL (3.50-5.40) Hemoglobin 11.7 g/dL (12.0-15.5) Hematocrit 35.1 % (36.0-47.0) Mean Corpuscular Volume 89 fL (79-100) Mean Corpuscular Hemoglobin 30 pg (25-35) Mean Corpuscular Hemoglobin Concent 33 g/dL (31-37) Red Cell Distribution Width 16.1 % (11.5-14.5) Platelet Count 241 x10^3/uL (140-400) Sodium Level 141 mmol/L (136-145) Potassium Level 3.8 mmol/L (3.5-5.1) Chloride Level 105 mmol/L (98-107) Carbon Dioxide Level 24 mmol/L (21-32) Anion Gap 12 (6-14) Blood Urea Nitrogen 14 mg/dL (7-20) Creatinine 1.0 mg/dL (0.6-1.0) Estimated GFR (Cockcroft-Gault) 56.0 Glucose Level 138 mg/dL (70-99) Calcium Level 8.8 mg/dL (8.5-10.1) Procalcitonin 0.34 ng/mL (0.00-0.10) Laboratory Tests Test 01/30/19 03:30 White Blood Count 8.2 x10^3/uL (4.0-11.0) Red Blood Count 3.93 x10^6/uL (3.50-5.40) Hemoglobin 11.7 g/dL (12.0-15.5) Hematocrit 35.1 % (36.0-47.0) Mean Corpuscular Volume 89 fL (79-100) Mean Corpuscular Hemoglobin 30 pg (25-35) Mean Corpuscular Hemoglobin Concent 33 g/dL (31-37) Red Cell Distribution Width 16.1 % (11.5-14.5) Platelet Count 241 x10^3/uL (140-400) Sodium Level 141 mmol/L (136-145) Potassium Level 3.8 mmol/L (3.5-5.1) Chloride Level 105 mmol/L (98-107) Carbon Dioxide Level 24 mmol/L (21-32) Anion Gap 12 (6-14) Blood Urea Nitrogen 14 mg/dL (7-20) Creatinine 1.0 mg/dL (0.6-1.0) Estimated GFR (Cockcroft-Gault) 56.0 Glucose Level 138 mg/dL (70-99) Calcium Level 8.8 mg/dL (8.5-10.1) Procalcitonin 0.34 ng/mL (0.00-0.10) Medications Active Scripts Medications Dose Route/Sig Max Daily Dose Days Date Category Oxycodone Hcl 5 Mg/5 Ml Solution 5 Mg PO PRN Q4HRS PRN 01/28/19 Reported Melatonin 3 Mg Tablet 2 Tab PO QHS 01/28/19 Reported Nitrostat (Nitroglycerin) 0.4 Mg Tab.subl 1 Tab SL UD 01/28/19 Reported Milk Of Magnesia (Magnesium Hydroxide) 2,400 Mg/10 Ml Oral.susp 30 Ml PO DAILY 01/28/19 Reported Tylenol (Acetaminophen) 325 Mg Tablet 650 Mg PO PRN Q4HRS PRN 01/28/19 Reported Albuterol Sulfate Oral Syrup (Albuterol Sulfate) 2 Mg/5 Ml Syrup 5 Ml PO PRN QID PRN 01/28/19 Reported Cefuroxime (Cefuroxime Axetil) 500 Mg Tablet 1 Tab PO BID 5 01/28/19 Reported Saline Nasal [place] (Sodium Chloride) 30 Ml [place] 1-2 [place] NS PRN QID 01/28/19 Reported Ondansetron Hcl 8 Mg Tablet 4 Mg PO PRN Q6HRS PRN 01/28/19 Reported Atorvastatin Calcium 40 Mg Tablet 1 Tab PO DAILY 01/28/19 Reported Mirapex (Pramipexole Di-Hcl) 0.25 Mg Tablet 1 Tab PO QHS 01/28/19 Reported Vitamin C (Ascorbic Acid) 500 Mg Tablet 500 Mg PO BID 01/28/19 Reported Fluticasone Propionate Nasal [place] (Fluticasone Propionate) 16 Gm [place].susp 2 [place] NS DAILY 01/28/19 Reported Flovent 110MCG Hfa (Fluticasone Propionate) 12 Gm Aer.w.adap 1 Puff IH BID 01/28/19 Reported Carvedilol (Carvedilol) 3.125 Mg Tablet 3.125 Mg PO BIDWMEALS 01/28/19 Reported Buspirone Hcl 15 Mg Tablet 1 Tab PO BID 01/28/19 Reported Thera Tablet (Multivitamin with Folic Acid) 400 Mcg Tablet 400 Mcg PO DAILY 01/28/19 Reported Ranitidine Hcl 150 Mg Tablet 150 Mg PO DAILY 01/28/19 Reported Losartan Potassium 25 Mg Tablet 25 Mg PO DAILY05 01/28/19 Reported Beneprotein (Whey Protein Isolate) 227 Gm Powder 227 Gm PO TIDWMEALS 01/28/19 Reported Gabapentin 600 Mg Tablet 1,200 Mg PO DAILYWSUP 01/28/19 Reported Furosemide 40 Mg Tablet 1 Tab PO DAILY 01/28/19 Reported Ferosul (Ferrous Sulfate) 220 Mg/5 Ml Solution 220 Mg PO DAILY 01/28/19 Reported Cymbalta (Duloxetine Hcl) 60 Mg Capsule.dr 1 Cap PO DAILY 01/28/19 Reported Clopidogrel (Clopidogrel Bisulfate) 75 Mg Tablet 1 Tab PO DAILY 01/28/19 Reported Aspir-Low (Aspirin) 81 Mg Tablet.dr 1 Tab PO DAILY 01/28/19 Reported Abilify (Aripiprazole) 10 Mg Tablet 10 Mg PO DAILY 01/28/19 Reported Impression . 1. Hemoptysis due to pneumonia 2. Abnormal CT chest revealing right upper lobe and right lower lobe pneumonia. 3. Chronic obstructive pulmonary disease with acute exacerbation. 4. Multiple other comorbidities as listed above. Plan . 1. Recommend coverage for both gram-negative and gram-positive organisms. 2. Resolving hemoptysis, 3. f/u cxr as needed. 4. Continue other home meds. 5. Nebulized treatments. TRESA BAH MD January 30, 2019 12:07
--- NOTE | 2019-01-30 14:00 | NUR ---
Pt transferred to room 516. Report called to ADDISON Vázquez. All belongings with patient at time of transfer.
[2019-01-30] MEDS: VANCOMYCIN PER PHARMACY MC PRN (14:40)
[2019-01-30 15:00] VITALS: BP 151/54
[2019-01-30] MEDS: GABAPENTIN 400 MG CAPSULE. PO SCH (17:20)
[2019-01-30 19:00] VITALS: BP 154/64
[2019-01-30] MEDS: ATORVASTATIN CALCIUM 40 MG TABLET. PO SCH (20:48)
[2019-01-30] MEDS: PRAMIPEXOLE 0.25 MG TABLET. PO SCH (20:48)
[2019-01-30] MEDS: LACTOBACILLUS RHAMNOSUS GG 1 CAPSULE. PO SCH (20:48)
[2019-01-30] MEDS: SODIUM CHLORIDE 0.65% NASAL SPRAY 45ML BOTTLE. NS PRN (21:03)
[2019-01-30 23:00] VITALS: BP 156/68
[2019-01-31 00:12] LABS: HEMOGLOBIN A1C 5.6 % (4.8-5.6)
[2019-01-31] MEDS: PIPERACILLIN/TAZOBACTAM 3.375 GM in IV NORMAL SALINE 50ML 50 ML IV SCH ×3 (00:32→13:17)
[2019-01-31 03:00] VITALS: BP 168/66
--- NOTE | 2019-01-31 03:41 | PN ---
DATE: 01/30/2019 SUBJECTIVE: The patient is resting slightly propped up in bed, in no apparent respiratory distress. On questioning her, she stated she continued to have cough with blood-tinged sputum, mostly white. She denied any chest pain or shortness of breath. Denied any chills, rigors or fever. She did well with her physical therapy and has been able to walk with a walker. PHYSICAL EXAMINATION: GENERAL: When I examined her, she was pale. No jaundice, cyanosis, or thyromegaly. No jugular venous distension. No lower limb edema. VITAL SIGNS: Her heart rate was 68, blood pressure was 135/75, temperature was 97.4, respiratory rate was 19 and oxygen saturation was 95% on room air. HEAD, EYES, EARS, NOSE AND THROAT: Showed normocephalic, atraumatic. NECK: Supple. HEART: Showed normal first and second sounds. No gallop or murmur. CHEST: Clear to auscultation. No crepitation or rhonchi. ABDOMEN: Distended, soft, nontender. NEUROLOGIC: She was awake, alert, responding appropriately. All cranial nerves intact. She moves extremities without difficulty. She ambulates with walker. Her intake and output were incompletely recorded. LABORATORY DATA: Her lab work this morning showed a serum sodium 141, potassium 3.8, chloride 105, bicarbonate 24, anion gap of 12, BUN 14, creatinine 1, estimated GFR was 56 mL per minute. Her glucose 138, calcium was 8.8 and procalcitonin was 0.34. Her white cell count was 8200, hemoglobin 11, hematocrit 35, MCV 89 and platelet count 241,000. ASSESSMENT: 1. Healthcare-associated pneumonia for which she is currently on IV Zosyn and vancomycin to cover both gram-negative and gram-positive rods. 2. Recurrent episode of hemoptysis. 3. Dysphagia for which she is currently on dysphagia diet. 4. Chronic obstructive pulmonary disease. 5. Gastroesophageal reflux disease. 6. 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 7. Combined systolic and diastolic congestive heart failure. 8. Gastroparesis. 9. Hyperlipidemia. 10. Recurrent falls. 11. Type 2 diabetes mellitus. 12. Severe protein-calorie malnutrition. PLAN: To continue with IV antibiotic in the form of vancomycin and Zosyn. She continues to be on her Plavix and aspirin and apparently her hemoptysis is resolving. I will probably continue one more day and if her cultures are noted to be negative, we will discharge her back to continue on oral antibiotic. DASH LAZO MD DR: RADHA/agustina JOB#: [id number] / [id number]
[2019-01-31 04:00] LABS: VANC TR 21.5 mcg/mL (10.0-20.0)
[2019-01-31] MEDS: VANCOMYCIN 1.25 GM in IV NORMAL SALINE 250ML 250 ML IV SCH (04:00)
[2019-01-31] MEDS: oxyCODONE IR 5 MG TABLET PO PRN (04:57)
[2019-01-31] MEDS: VANCOMYCIN PER PHARMACY MC PRN (05:07)
--- NOTE | 2019-01-31 05:09 | NUR ---
Pharmacy Vancomycin Dosing Note S: Consulted to monitor and dose vancomycin started 01/29/19. O: KATHERINE MCGILL is a 63 year old F with Pneumonia, . Other Antibiotics: ZOSYN 3.375GM IV q6hrs LABS: Last BUN: 14 Last Creatinine: 1.0 Creatinine Clearance: 52 mL/min Last WBC: 8.2 Last Procalcitonin: 0.34 Tmax (past 24 hours): 99.0 Microbiology: I/O: 2590/- Drug Levels: Last Trough level: 21.5 on 01/31/19 at 0330 Last dose given 01/30/19 at 1621 Vancomycin Dosing: Dosing Weight: Actual Target Trough: 15-20 A: Based on: Trough(H), Actual Wt and decreased CrCl P: 1. 01/31/19 0400 Vancomycin 1250 mg IV q12h dose HELD 2. Follow up Random level on 01/31/19 at 1530 3. Pharmacy will continue to monitor, follow and adjust therapy as needed. CARI LION RPH, 01/31/19 0509 Signed: 01/31/19 at 0510 by CARI LION RPH PHA
[2019-01-31 07:00] VITALS: BP 146/72
[2019-01-31] MEDS: BUDESONIDE 0.5 MG/2 ML NEBU. NEB SCH (07:45)
[2019-01-31] MEDS: ARIPiprazole 5 MG TABLET PO SCH (08:43)
[2019-01-31] MEDS: LOSARTAN POTASSIUM 25 MG TABLET. PO SCH (08:43)
[2019-01-31] MEDS: ASPIRIN ENTERIC COATED 81 MG TABLET.DR. PO SCH (08:43)
[2019-01-31] MEDS: busPIRone 5 MG TABLET. PO SCH (08:43)
[2019-01-31] MEDS: FUROSEMIDE 40 MG TABLET. PO SCH (08:44)
[2019-01-31] MEDS: DULoxetine HCL 30 MG CAPSULE.DR PO SCH (08:44)
[2019-01-31] MEDS: ASCORBIC ACID 500 MG TABLET PO SCH (08:44)
[2019-01-31] MEDS: MULTIVITAMIN with MINERAL TABLET. PO SCH (08:44)
[2019-01-31] MEDS: FAMOTIDINE 20 MG TABLET. PO SCH (08:44)
[2019-01-31] MEDS: FERROUS SULFATE 325 MG TABLET. PO SCH (08:44)
[2019-01-31] MEDS: CARVEDILOL 3.125 MG TABLET. PO SCH (08:44)
[2019-01-31] MEDS: LACTOBACILLUS RHAMNOSUS GG 1 CAPSULE. PO SCH (08:44)
[2019-01-31] MEDS: CLOPIDOGREL BISULFATE 75 MG TABLET PO SCH (08:44)
[2019-01-31] MEDS: POTASSIUM CHLORIDE 20 MEQ/15 ML ORAL LIQUID. PO SCH (09:00)
[2019-01-31] MEDS ORDERED: AMOX1TAB61 PO (09:40)
--- NOTE | 2019-01-31 09:42 | SNU/HH DC ---
DISCHARGE ORDERS DISCHARGE INFORMATION: DISCHARGE DATE: January 31, 2019 FINAL DIAGNOSIS HCAP CONDITION ON DISCHARGE: Stable CODE STATUS: Code Status: DNR/DNI LONG TERM: SNF STAY <30 DAYS: No POST DISCHARGE ORDERS: ACTIVITY ORDERS: Resume previous activity DIET AFTER DISCHARGE: Regular TREATMENT/EQUIPMENT ORDERS: Physical Therapy For: Evalulation/Treatment Occupational Therapy For: Evaluation/Treatment DISCHARGE MEDICATIONS: Home Meds Reported Medications Oxycodone Hcl (OXYCODONE HCL) 5 Mg/5 Ml Solution, 5 MG PO PRN Q4HRS PRN for PAIN, ML 0 Refills 01/28/19 Melatonin (MELATONIN) 3 Mg Tablet, 2 TAB PO QHS for SLEEP, TAB 01/28/19 Nitroglycerin (NITROSTAT) 0.4 Mg Tab.subl, 1 TAB SL UD for CHEST PAIN, TAB 01/28/19 Magnesium Hydroxide (MILK OF MAGNESIA) 2,400 Mg/10 Ml Oral.susp, 30 ML PO DAILY for CONSTIPATION, MISC 01/28/19 Acetaminophen (TYLENOL) 325 Mg Tablet, 650 MG PO PRN Q4HRS PRN for MILD PAIN, TAB 01/28/19 Albuterol Sulfate (ALBUTEROL SULFATE ORAL SYRUP) 2 Mg/5 Ml Syrup, 5 ML PO PRN QID PRN for COUGH, ML 01/28/19 Cefuroxime Axetil (CEFUROXIME) 500 Mg Tablet, 1 TAB PO BID for UTI for 5 Days, #10 TAB 01/28/19 Sodium Chloride (SALINE NASAL SPRAY) 30 Ml [place], 1-2 SPRAY NS PRN QID for DRY, ML 01/28/19 Ondansetron Hcl (ONDANSETRON HCL) 8 Mg Tablet, 4 MG PO PRN Q6HRS PRN for NAUSEA/VOMITING, TAB 01/28/19 Atorvastatin Calcium (ATORVASTATIN CALCIUM) 40 Mg Tablet, 1 TAB PO DAILY for CHOLESTEROL, TAB 01/28/19 Pramipexole Di-Hcl (MIRAPEX) 0.25 Mg Tablet, 1 TAB PO QHS for SEE H&P, TAB 01/28/19 Ascorbic Acid (VITAMIN C) 500 Mg Tablet, 500 MG PO BID for SEE H&P, TAB 01/28/19 Fluticasone Propionate (FLUTICASONE PROPIONATE NASAL SPRAY) 16 Gm [place].susp, 2 SPRAY NS DAILY for NASAL, INHALER 01/28/19 Fluticasone Propionate (FLOVENT 110MCG HFA) 12 Gm Aer.w.adap, 1 PUFF IH BID for SEE H&P, #1 INHALER 2 Refills 01/28/19 Carvedilol (CARVEDILOL ) 3.125 Mg Tablet, 3.125 MG PO BIDWMEALS for CARDIAC, TAB 01/28/19 Buspirone Hcl (BUSPIRONE HCL) 15 Mg Tablet, 1 TAB PO BID for SEE H&P, TAB 01/28/19 Multivitamin with Folic Acid (Thera Tablet) 400 Mcg Tablet, 400 MCG PO DAILY for Supplement, TAB 01/28/19 Ranitidine Hcl (RANITIDINE HCL) 150 Mg Tablet, 150 MG PO DAILY for Reflux, TAB 01/28/19 Losartan Potassium (Losartan Potassium) 25 Mg Tablet, 25 MG PO DAILY05 for HTN, TAB 01/28/19 Whey Protein Isolate (Beneprotein) 227 Gm Powder, 227 GM PO TIDWMEALS for Cee pplement, MISC 01/28/19 Gabapentin (GABAPENTIN) 600 Mg Tablet, 1200 MG PO DAILYWSUP for NEUROGENIC PAIN, TAB 01/28/19 Furosemide (FUROSEMIDE) 40 Mg Tablet, 1 TAB PO DAILY for Diuresis, TAB 01/28/19 Ferrous Sulfate (FEROSUL) 220 Mg/5 Ml Solution, 220 MG PO DAILY for Supplement, MISC 01/28/19 Duloxetine Hcl (CYMBALTA) 60 Mg Capsule.dr, 1 CAP PO DAILY for Depression, CAP 01/28/19 Clopidogrel Bisulfate (CLOPIDOGREL) 75 Mg Tablet, 1 TAB PO DAILY for Anti- platelet, TAB 01/28/19 Aspirin (ASPIR-LOW) 81 Mg Tablet.dr, 1 TAB PO DAILY for Heart, TAB 01/28/19 Aripiprazole (ABILIFY) 10 Mg Tablet, 10 MG PO DAILY for Depression, TAB 01/28/19 DASH LAZO MD January 31, 2019 09:42
--- NOTE | 2019-01-31 10:10 | NUR ---
DISCHARGE ORDERS RECEIVED FROM DR. LAZO, PATIENT INFORMED, COPIED CHART FAXED TO RECEIVING FACILITY PER TRASH COLLECTOR TRUCK DRIVER, DISCHARGE PAPERWORK COMPLETED PER THIS WOOD TECHNOLOGIST.
--- NOTE | 2019-01-31 10:39 | PDOC ---
PULMONARY PROGRESS NOTES Subjective very minimal hemoptysis Vitals Vital Signs Date Time Temp Pulse Resp B/P (MAP) Pulse Ox O2 Delivery O2 Flow Rate FiO2 01/31/19 08:44 61 146/72 01/31/19 08:00 Room Air 01/31/19 07:45 97 01/31/19 07:00 98.1 18 98.1 ROS: No Chest Pain, No Increase Cough General: Alert, No acute distress Lungs: Clear Cardiovascular: S1 Abdomen: Soft Neuro Exam: Alert Extremities: No Edema Skin: Warm Labs Laboratory Tests Test 01/30/19 03:30 01/31/19 03:30 White Blood Count 8.2 x10^3/uL (4.0-11.0) Red Blood Count 3.93 x10^6/uL (3.50-5.40) Hemoglobin 11.7 g/dL (12.0-15.5) Hematocrit 35.1 % (36.0-47.0) Mean Corpuscular Volume 89 fL (79-100) Mean Corpuscular Hemoglobin 30 pg (25-35) Mean Corpuscular Hemoglobin Concent 33 g/dL (31-37) Red Cell Distribution Width 16.1 % (11.5-14.5) Platelet Count 241 x10^3/uL (140-400) Sodium Level 141 mmol/L (136-145) Potassium Level 3.8 mmol/L (3.5-5.1) Chloride Level 105 mmol/L (98-107) Carbon Dioxide Level 24 mmol/L (21-32) Anion Gap 12 (6-14) Blood Urea Nitrogen 14 mg/dL (7-20) Creatinine 1.0 mg/dL (0.6-1.0) Estimated GFR (Cockcroft-Gault) 56.0 Glucose Level 138 mg/dL (70-99) Hemoglobin A1c 5.6 % (4.8-5.6) Calcium Level 8.8 mg/dL (8.5-10.1) Procalcitonin 0.34 ng/mL (0.00-0.10) Vancomycin Level Trough 21.5 mcg/mL (10.0-20.0) Vancomycin Last Dose Date Vancomycin Last Dose Time Laboratory Tests Test 01/31/19 03:30 Vancomycin Level Trough 21.5 mcg/mL (10.0-20.0) Vancomycin Last Dose Date Vancomycin Last Dose Time Medications Active Scripts Medications Dose Route/Sig Max Daily Dose Days Date Category Oxycodone Hcl 5 Mg/5 Ml Solution 5 Mg PO PRN Q4HRS PRN 01/28/19 Reported Melatonin 3 Mg Tablet 2 Tab PO QHS 01/28/19 Reported Nitrostat (Nitroglycerin) 0.4 Mg Tab.subl 1 Tab SL UD 01/28/19 Reported Milk Of Magnesia (Magnesium Hydroxide) 2,400 Mg/10 Ml Oral.susp 30 Ml PO DAILY 01/28/19 Reported Tylenol (Acetaminophen) 325 Mg Tablet 650 Mg PO PRN Q4HRS PRN 01/28/19 Reported Albuterol Sulfate Oral Syrup (Albuterol Sulfate) 2 Mg/5 Ml Syrup 5 Ml PO PRN QID PRN 01/28/19 Reported Cefuroxime (Cefuroxime Axetil) 500 Mg Tablet 1 Tab PO BID 5 01/28/19 Reported Saline Nasal [place] (Sodium Chloride) 30 Ml [place] 1-2 [place] NS PRN QID 01/28/19 Reported Ondansetron Hcl 8 Mg Tablet 4 Mg PO PRN Q6HRS PRN 01/28/19 Reported Atorvastatin Calcium 40 Mg Tablet 1 Tab PO DAILY 01/28/19 Reported Mirapex (Pramipexole Di-Hcl) 0.25 Mg Tablet 1 Tab PO QHS 01/28/19 Reported Vitamin C (Ascorbic Acid) 500 Mg Tablet 500 Mg PO BID 01/28/19 Reported Fluticasone Propionate Nasal [place] (Fluticasone Propionate) 16 Gm [place].susp 2 [place] NS DAILY 01/28/19 Reported Flovent 110MCG Hfa (Fluticasone Propionate) 12 Gm Aer.w.adap 1 Puff IH BID 01/28/19 Reported Carvedilol (Carvedilol) 3.125 Mg Tablet 3.125 Mg PO BIDWMEALS 01/28/19 Reported Buspirone Hcl 15 Mg Tablet 1 Tab PO BID 01/28/19 Reported Thera Tablet (Multivitamin with Folic Acid) 400 Mcg Tablet 400 Mcg PO DAILY 01/28/19 Reported Ranitidine Hcl 150 Mg Tablet 150 Mg PO DAILY 01/28/19 Reported Losartan Potassium 25 Mg Tablet 25 Mg PO DAILY05 01/28/19 Reported Beneprotein (Whey Protein Isolate) 227 Gm Powder 227 Gm PO TIDWMEALS 01/28/19 Reported Gabapentin 600 Mg Tablet 1,200 Mg PO DAILYWSUP 01/28/19 Reported Furosemide 40 Mg Tablet 1 Tab PO DAILY 01/28/19 Reported Ferosul (Ferrous Sulfate) 220 Mg/5 Ml Solution 220 Mg PO DAILY 01/28/19 Reported Cymbalta (Duloxetine Hcl) 60 Mg Capsule.dr 1 Cap PO DAILY 01/28/19 Reported Clopidogrel (Clopidogrel Bisulfate) 75 Mg Tablet 1 Tab PO DAILY 01/28/19 Reported Aspir-Low (Aspirin) 81 Mg Tablet.dr 1 Tab PO DAILY 01/28/19 Reported Abilify (Aripiprazole) 10 Mg Tablet 10 Mg PO DAILY 01/28/19 Reported Impression . 1. Hemoptysis due to pneumonia 2. Abnormal CT chest revealing right upper lobe and right lower lobe pneumonia. 3. Chronic obstructive pulmonary disease with acute exacerbation. 4. Multiple other comorbidities as listed above. Plan . 1. Recommend coverage for both gram-negative and gram-positive organisms. 2. Resolving hemoptysis, 3. f/u cxr as needed. 4. Continue other home meds. 5. Nebulized treatments. ok with dc home on po abx/ d/w TRESA Ascencio MD January 31, 2019 10:39
[2019-01-31 11:00] VITALS: BP 144/71
--- NOTE | 2019-01-31 11:01 | NUR ---
PRADEEP following pt. Pt is a resident at [facility] and [facility]. PRADEEP phoned and faxed orders to [facility] on transport time. MARY JAIME and Physician. 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 MARY JAIME.
--- NOTE | 2019-01-31 11:25 | NUR ---
REPORT CALLED TO PHILIP (NURSE AT RECEIVING FACILITY), QUESTIONS AND CONCERNS ANSWERED, AWAITING A CALL FROM [employer] TO INFORM THIS WHEN PATIENT WILL BE PICKED UP.
[2019-01-31] MEDS: FLUTICASONE 50MCG/NASAL SPRAY 16GM BOTTLE. NS SCH (13:16)
[2019-01-31] MEDS ORDERED: VANCOMYCIN RANDOM LEVEL. MC ONE (15:30)
--- NOTE | 2019-01-31 19:21 | DS ---
DATE OF DISCHARGE: 01/31/2019 HOSPITAL COURSE: The patient is resting slightly propped up in bed, in no apparent distress. On questioning her, she said that she is doing much better. She has no more shortness of breath. Continued to have cough with scanty whitish sputum with tinged blood. Denied any chest pain. Denied any chills, rigors or fever. PHYSICAL EXAMINATION: GENERAL: When I examined her, she looked pale, not jaundiced, cyanosis or thyromegaly. No jugular venous distension. No limb edema. VITAL SIGNS: Her heart rate was 62, blood pressure was 146/72, temperature was 98.1, respiratory rate was 18 and oxygen saturation was 97% on room air. HEAD, EYES, EARS, NOSE AND THROAT: Showed normocephalic, atraumatic. NECK: Supple. HEART: Showed normal first and second sounds. No gallop, rub or murmur. CHEST: Clear to auscultation. No crepitation or rhonchi. ABDOMEN: Distended, soft, nontender. No guarding or rigidity. No organomegaly. All hernial orifices are intact. Bowel sounds normal. NEUROLOGIC: She was awake, alert, responding appropriately. All cranial nerves intact. She moves extremities without difficulty. She ambulates with a walker. Her intake over the last 24 hours was 2590, no output was recorded. LABORATORY DATA: Showed a white cell count is down to 8200, hemoglobin 12, hematocrit 35, MCV 89 and platelet count 241,000. Her chemistry showed a serum sodium of 141, potassium 3.8, chloride 105, bicarbonate 24, anion gap of 12, BUN 14, creatinine 1, estimated GFR was 56 mL per minute. Her glucose was 138, calcium was 8.8. Her hemoglobin A1c was 5.6. DISCHARGE MEDICATIONS: She will be discharged back to [facility] in [place] to continue on amoxicillin/potassium clavulanic acid for Augmentin 875 mg twice a day for 7 days, Tylenol 650 mg every 4 hours as needed, albuterol sulfate 4 times a day, aripiprazole for Abilify 10 mg daily, ascorbic acid 500 mg twice a day, aspirin 81 mg once a day, atorvastatin calcium 40 mg daily, buspirone 15 mg twice a day, carvedilol 3.125 mg twice a day, Plavix 75 mg once a day, duloxetine for Cymbalta 60 mg daily, ferrous sulfate 220 mg per 5 mL solution daily, Flovent 110 mcg 1 puff twice a day, Flonase 2 sprays to each nostril daily, furosemide 40 mg daily, gabapentin 1200 mg daily with supper, losartan potassium 25 mg once a day, magnesium hydroxide for milk of magnesia 30 mL p.o. daily p.r.n. for constipation, melatonin 6 mg daily at bedtime, multivitamin with folic acid 1 tablet once a day, nitroglycerin 0.4 mg sublingually as needed every 5 minutes x 3, oxycodone 5 mg in 5 mL solution, takes 5 mg every 4 hours as needed, pramipexole, Mirapex 0.25 mg at bedtime, ranitidine 150 mg daily, sodium chloride, saline nasal spray 1 spray to each nostril 4 times a day and whey protein isolate for Beneprotein 227 g powder 3 times a day with meals. FINAL DISCHARGE DIAGNOSES: 1. Healthcare-associated pneumonia for which she is switched to oral Augmentin. 2. Recurrent episode of hemoptysis due to pneumonia. She was seen for that by the operations dispatcher and no indication for now for bronchoscopy. 3. Dysphagia for which she is currently on dysphagia diet. 4. Chronic obstructive pulmonary disease. 5. Gastroesophageal reflux disease. 6. 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 7. Combined systolic and diastolic congestive heart failure. 8. Gastroparesis. 9. Hyperlipidemia. 10. Recurrent falls. 11. Type 2 diabetes mellitus, extremely well controlled. Her hemoglobin A1c is only 5.6%. 12. Severe protein calorie malnutrition. DASH LAZO MD DR: RADHA/agustina JOB#: [id number] / [id number]
== END 2019-01-31 14:00 | disposition home or self-care (01) | DRG 871 ==
LOC: ER 15:00 → 6 SOUTH 17:29 → 5 NORTH 01-30 14:06
PROVIDERS: ADMIT Internal Medicine; ATTEND Internal Medicine
DX: A41.9 Sepsis, unspecified organism (principal); E43 Unspecified severe protein-calorie malnutrition; J18.1 Lobar pneumonia, unspecified organism; J44.0 Chronic obstructive pulmonary disease with (acute) lower respiratory infection; I50.42 Chronic combined systolic (congestive) and diastolic (congestive) heart failure; J44.1 Chronic obstructive pulmonary disease with (acute) exacerbation; Y95 Nosocomial condition; E11.43 Type 2 diabetes mellitus with diabetic autonomic (poly)neuropathy; Z68.31 Body mass index [BMI] 31.0-31.9, adult; G89.29 Other chronic pain; F90.9 Attention-deficit hyperactivity disorder, unspecified type; F41.0 Panic disorder [episodic paroxysmal anxiety]; M15.0 Primary generalized (osteo)arthritis; F31.9 Bipolar disorder, unspecified; E78.5 Hyperlipidemia, unspecified; R29.6 Repeated falls; R13.10 Dysphagia, unspecified; K21.9 Gastro-esophageal reflux disease without esophagitis; K31.84 Gastroparesis; G47.00 Insomnia, unspecified; Z98.84 Bariatric surgery status; Z88.5 Allergy status to narcotic agent; Z79.82 Long term (current) use of aspirin; Z79.02 Long term (current) use of antithrombotics/antiplatelets; Z87.891 Personal history of nicotine dependence; Z79.899 Other long term (current) drug therapy
CPT/HCPCS: 36415; 71275; 80048; 80053; 80202; 83036; 83605; 84145; 84484; 85007; 85025; 85027; 85610; 85730; 87641; 93005; 94640; 94760; 96361; 96374; 96375; J0360; J0456; J0696; J2543; J3010; J3370; J3480; J7040; J7050; J7613; J7626; Q0163; Q9967; 97110; 97530; 97535; 99285-25; J7030